=== PATIENT | male | born 1965 | race Two or more races ===

== ENCOUNTER 2019-03-23 07:31 | Outpatient (CLI) | payer OTHER | END 2019-03-23 07:50 | disposition home or self-care (01) | LOC: NUCLEAR 07:31 | DX: I11.9 Hypertensive heart disease without heart failure (principal) | CPT/HCPCS: 78452; 93017; A9500 ==

== ENCOUNTER 2020-01-06 10:49 | Outpatient (CLI) | payer OTHER | END 2020-01-06 10:58 | disposition home or self-care (01) | LOC: RAD 10:49 | PROVIDERS: ATTEND General Practice | DX: M54.5 Low back pain (principal); M54.6 Pain in thoracic spine ==

== ENCOUNTER 2020-04-04 11:02 | Emergency (ER) | payer OTHER ==
[~2020-04-04] VITALS: Ht 185.4 cm; Wt 114.3 kg
[2020-04-04] MEDS ORDERED: KETO10TA2 PO (16:51)
[2020-04-04] MEDS ORDERED: ORPHENADRINE C100 MG PO (16:51)
== END 2020-04-04 17:05 | disposition home or self-care (01) ==
LOC: ER 11:02
DX: M62.830 Muscle spasm of back (principal)

== ENCOUNTER 2020-05-09 11:17 | Emergency (ER) | payer OTHER ==
[~2020-05-09] VITALS: Ht 182.9 cm; Wt 102.1 kg
[~2020-05-09 11:17] MED LIST: KETO10TA2 PO; ORPHENADRINE C100 MG PO
[2020-05-09] MEDS ORDERED: NEURONTIN600 M1 (11:42)
== END 2020-05-09 18:31 | disposition home or self-care (01) ==
LOC: ER 11:17
DX: S22.080A Wedge compression fracture of T11-T12 vertebra, initial encounter for closed fracture (principal); M54.5 Low back pain; Z03.818 Encounter for observation for suspected exposure to other biological agents ruled out; X58.XXXA Exposure to other specified factors, initial encounter; Y93.89 Activity, other specified; Y92.89 Other specified places as the place of occurrence of the external cause; Y99.8 Other external cause status